=== PATIENT | male | born 1965 | race African-American/Black ===

== ENCOUNTER 2017-06-24 09:06 | Emergency (ER) | payer OTHER, MEDICAID ==
[~2017-06-24] VITALS: Ht 188 cm; Wt 87.0 kg
[2017-06-24] MEDS ORDERED: KETOROLAC 60MG/2ML VIAL IM ONE (12:00)
[2017-06-24 12:07] VITALS: BP 131/75
[2017-06-24 12:30] LABS: CLARITY URINE CLEAR (CLEAR); COLOR URINE YELLOW (YELLOW); KETONES URINE NEGATIVE (NEGATIVE); LEUKOCYTE ESTERASE URINE TRACE (NEGATIVE); NITRITE URINE NEGATIVE (NEGATIVE); OCCULT BLOOD URINE NEGATIVE (NEGATIVE); PROTEIN URINE NEGATIVE (NEGATIVE); SPECIFIC GRAVITY URINE 1.016 (1.005-1.030); UROBILINOGEN URINE 0.2 E.U./dL (0.2-1.0)
== END 2017-06-24 13:10 | disposition home or self-care (01) ==
LOC: ER 09:22
DX: K64.4 Residual hemorrhoidal skin tags (principal); I10 Essential (primary) hypertension
CPT/HCPCS: 81001; 96372; 99283; J1885